=== PATIENT | female | born 1960 | race Native Hawaiian/Other Pacific Islander ===

== ENCOUNTER 2019-11-11 14:52 | Emergency (ER) | payer BC ==
[~2019-11-11] VITALS: Ht 162.6 cm; Wt 52.2 kg
[2019-11-11 14:54] VITALS: TEMP 97.7
[2019-11-11 16:35] VITALS: BP 125/61
== END 2019-11-11 16:35 | disposition home or self-care (01) ==
LOC: ED 14:52
PROC: 0HQGXZZ Repair Left Hand Skin, External Approach (ICD-10-PCS; principal; 2019-11-11)
DX: S62.635A Displaced fracture of distal phalanx of left ring finger, initial encounter for closed fracture (principal); S61.215A Laceration without foreign body of left ring finger without damage to nail, initial encounter; W20.8XXA Other cause of strike by thrown, projected or falling object, initial encounter; Y92.219 Unspecified school as the place of occurrence of the external cause
CPT/HCPCS: 90471; 90715; 99283; J7040

== ENCOUNTER 2022-11-23 09:21 | Outpatient (CLI) | payer BC | END 2022-11-23 22:51 | disposition home or self-care (01) | LOC: CT 09:21 | PROVIDERS: ATTEND Internal Medicine | DX: R10.9 Unspecified abdominal pain (principal); Z87.448 Personal history of other diseases of urinary system; Z09 Encounter for follow-up examination after completed treatment for conditions other than malignant neoplasm ==

== ENCOUNTER 2023-01-03 13:54 | Outpatient (CLI) | payer BC | END 2023-01-03 19:27 | disposition home or self-care (01) | LOC: MRI 13:54 | PROVIDERS: ATTEND Internal Medicine | DX: R10.9 Unspecified abdominal pain (principal); R93.5 Abnormal findings on diagnostic imaging of other abdominal regions, including retroperitoneum | CPT/HCPCS: 36415; 82565; 84520; A9576 ==